=== PATIENT | female | born 1985 | race Hispanic/Latino ===

== ENCOUNTER 2016-10-30 10:16 | Emergency (ER) | payer OTHER ==
[~2016-10-30] VITALS: Ht 162.6 cm; Wt 75.0 kg
[2016-10-30 10:32] VITALS: BP 125/90; PULSE 91; RESP 18; O2SAT 98
--- NOTE | 2016-10-30 11:36 | ED.REPORT ---
HPI-Dyspnea / Wheezing Date of Service Oct 30, 2016 ED Provider: Chuck Orozco MD A 30 year old female with no pertinent medical history presents to the ED complaining of a headache and body aches. This is accompanied by back pain, sore throat, cough, rhinorrhea, and difficulty breathing at night. These symptoms began four days ago and have persisted since. The pt is nonproductive currently, but initially had white sputum. The pt denies ear pain, chest pain, neck pain, neck stiffness, or abdominal pain. She states that her is ill with the same symptoms. Nursing Notes Stated Complaint: MIGRAINE, SORE THROAT, BODY ACHES Chief Complaint: FLU/Cold Symptoms Nursing Notes Reviewed: Yes Allergies: Coded Allergies: No Known Allergies (Unverified , 10/30/16) Scheduled Amoxicillin/Clav K 875-125 mg (Augmentin 875-125 mg) 1 Each Tablet 1 TABLET PO BID Oxymetazoline HCl (Nasal Healy Sinus) 30 Ml Healy 30 ML NS QID General Time Seen by MD: 10:45 Chief Complaint Cough Hx Obtained From: Patient Arrived By: Walk-in Sudden in Onset?: No Symptom Duration: Since onset Recent Healthcare: No recent doctor visit, No recent hospitalization Similar Sx Previous: No Past Medical History Past Medical History none reported Past Surgical History none reported Smoking History Unknown if Ever Smoker Ambulatory Status Independent Review of Systems Review of Systems Note: denies neck stiffness Constitutional: Denies: Fever Ears / Nose / Throat: Reports: Sore throat, Denies: Earache bilateral Respiratory: Reports: Non-productive cough, Prod cough, white, Shortness of breath Cardiovascular: Denies: Chest pain Musculoskeletal: Reports: Back pain, Myalgia, Denies: Neck pain Skin: Denies Rash Allergy / Immune: Reports: Rhinorrhea Complete sys rev & neg: except as marked. Neurologic: Reports: Headache Physical Exam Initial Vital Signs Vital Signs (First) Date Time Temp Pulse Resp B/P Pulse Ox O2 Delivery O2 Flow Rate FiO2 10/30/16 10:32 36.8 91 18 125/90 98 Room Air Initial VS: Reviewed General/Constitutional: Awake, Alert Neck: Atraumatic, Supple, Full range of motion Respiratory / Chest: Atraumatic, Breath sounds NL, Breath sounds = bilat, No respiratory distress Cardiovascular: Heart rate NL, Regular rhythm, Heart sounds NL, No murmurs ENT: Atraumatic, Airway patent, Mucous membranes moist erythematous pharynx Abdomen: Atraumatic, Soft, Non-tender, No guarding, No rebound Back: Atraumatic, Full range of motion Lower Extremity / Pelvis / MS: Atraumatic, Full range of motion Skin: Atraumatic, Color NL, No rash, Warm, Dry Neurologic: Oriented X3, Speech NL, No motor deficits, No sensory deficits Head / Eyes: Atraumatic, Normocephalic, PERRL, EOMI tender over maxillary and frontal sinuses Upper Extremity / MS: Atraumatic, Full range of motion Psychiatric: Affect NL, Mood NL Re-Eval/Medical Decision Med Decision/Clinical Course Sinusitis. Possibly viral. Vital signs stable. Gave prescription of Augmentin that she may use in several days if her symptoms not improved. Return precautions given. Source of Hx: Old records Re-Evaluation/Progress : Time of Eval: 11:41 Patient Status: Condition improved Re-Evaluation/Progress Note: Pt informed of the diagnosis and plan for discharge. The pt understands and agrees with the plan. All questions are addressed at this time. Counseled Regarding: Diagnosis, Need for follow-up, When/why to return to ED Discharge & Departure Impression: Primary Impression: Sinusitis Sinusitis location: unspecified location Chronicity: unspecified Qualified Code: J32.9 - Chronic sinusitis, unspecified Disposition: Home Discharge Condition All VS Reviewed: Yes Condition: Stable Patient Instructions: Sinusitis (ED) Additional Instructions: Take Augmentin if your symptoms do not improve in the next few days. Rest. Take over the counter lozenges for throat pain and NyQuil as directed for other symptoms. Follow up with your primary care physician for further evaluation. Return to the ED if you develop any new or worsening symptoms. Referrals: [facility] Scribe Attestation Portions of this note were transcribed by Josh Avina I, Dr. Orozco personally performed the history, physical exam and medical decision-making; I reviewed and confirmed the accuracy of the information in the transcribed note. Signed by: Yarelis Gonzales, 10/30/16 and 14:32. copies to: [facility] Chuck Orozco MD Oct 30, 2016 11:36 JOSH AVINA Oct 30, 2016 11:45 Chuck Orozco MD Oct 30, 2016 11:36 JOSH AVINA Oct 30, 2016 11:45
[2016-10-30] MEDS ORDERED: Ketorolac 30 mg/mL 2 mL Inj IM ONE (11:45)
[2016-10-30] MEDS ORDERED: OXYM30SP18 NS (11:46)
[2016-10-30] MEDS ORDERED: AMOX-366 PO (11:46)
[2016-10-30 12:51] VITALS: BP 104/69; PULSE 63; O2SAT 98
== END 2016-10-30 11:48 | disposition home or self-care (01) ==
LOC: SED 10:16
DX: J32.9 Chronic sinusitis, unspecified (principal)
CPT/HCPCS: 87880; 96372; 99284; J1885